=== PATIENT | male | born 1965 | race Hispanic/Latino ===

== ENCOUNTER 2021-11-01 11:12 | Emergency (ER) | payer OTHER ==
[~2021-11-01] VITALS: Ht 172.7 cm; Wt 83.9 kg
[2021-11-01 11:18] VITALS: TEMP 99.6
[2021-11-01 12:08] LABS: PLATELET COUNT 296 K/uL (142-355)
[2021-11-01 17:45] VITALS: BP 128/71
== END 2021-11-01 17:45 | disposition short-term general hospital (02) ==
LOC: ED 11:12
PROVIDERS: Emergency Medicine Emergency Medical Services
DX: I63.89 Other cerebral infarction (principal); I10 Essential (primary) hypertension; Z91.14 Patient's other noncompliance with medication regimen; F17.210 Nicotine dependence, cigarettes, uncomplicated; Z11.52 Encounter for screening for COVID-19; W18.39XA Other fall on same level, initial encounter; Y92.89 Other specified places as the place of occurrence of the external cause
CPT/HCPCS: 36415; 80053; 83735; 84484; 85027; 87635; 93005; 96374; 96375; 99284; J0360; J3490; U0003

== ENCOUNTER 2022-04-07 14:55 | Emergency (ER) | payer OTHER ==
[~2022-04-07] VITALS: Ht 172.7 cm; Wt 74.8 kg
[2022-04-07 14:58] VITALS: TEMP 99
[2022-04-07 16:52] LABS: PLATELET COUNT 233 K/uL (142-355)
[2022-04-07 16:55] LABS: POTASSIUM 3.9 mmol/L (3.6-5.2)
[2022-04-07 17:01] LABS: PARTIAL THROMBOPLASTIN TIME 25.6 SECONDS (24.5-33.6)
[2022-04-07 19:10] VITALS: BP 137/88
== END 2022-04-07 19:10 | disposition home or self-care (01) ==
LOC: ED 14:55
PROVIDERS: Emergency Medicine
DX: I16.0 Hypertensive urgency (principal); F17.210 Nicotine dependence, cigarettes, uncomplicated; M79.604 Pain in right leg
CPT/HCPCS: 36415; 80053; 81000; 84484; 85027; 85610; 85730; 87088; 93005; 96365; 96372; 96375; 99284; J0360; J1885; J3490

== ENCOUNTER 2022-06-13 12:47 | Emergency (ER) | payer OTHER ==
[~2022-06-13] VITALS: Ht 172.7 cm; Wt 77.1 kg
[2022-06-13 12:47] VITALS: TEMP 98
[2022-06-13 13:19] LABS: PLATELET COUNT 266 K/uL (142-355)
[2022-06-13 13:31] LABS: POTASSIUM 3.9 mmol/L (3.6-5.2)
[2022-06-13 15:38] VITALS: BP 100/56
== END 2022-06-13 15:38 | disposition home or self-care (01) ==
LOC: ED 12:50
PROVIDERS: Emergency Medicine Emergency Medical Services
DX: I10 Essential (primary) hypertension (principal); F17.210 Nicotine dependence, cigarettes, uncomplicated
CPT/HCPCS: 80053; 83735; 84484; 85027; 93005; 96361; 96365; 96374; 96375; 99284; J0360; J3490

== ENCOUNTER 2022-06-16 09:52 | Observation (INO) | payer OTHER ==
[~2022-06-16] VITALS: Ht 172.7 cm; Wt 74.0 kg
[2022-06-16 09:56] VITALS: BP 175/110; TEMP 99
[2022-06-16 10:57] LABS: PLATELET COUNT 196 K/uL (142-355)
[2022-06-16 11:00] VITALS: BP 185/115
[2022-06-16 11:30] VITALS: BP 186/122
[2022-06-16 12:31] VITALS: BP 178/112
[2022-06-16] MEDS ORDERED: LISI20TA11 PO (13:23)
[2022-06-16 13:43] VITALS: BP 181/118; TEMP 98.8; Ht 172.7 cm; Wt 74.0 kg
[2022-06-16 20:51] VITALS: BP 184/100; TEMP 99.8
[2022-06-17 00:21] VITALS: BP 149/96; TEMP 98.4
[2022-06-17 04:00] VITALS: BP 170/100; TEMP 98.7
[2022-06-17 04:16] LABS: PLATELET COUNT 186 K/uL (142-355)
[2022-06-17 08:00] VITALS: BP 164/98; TEMP 98.3
[2022-06-17] MEDS ORDERED: LISI20TA11 PO (10:53)
[2022-06-17] MEDS ORDERED: METO-837 PO (10:54)
[2022-06-17] MEDS ORDERED: ATOR20TA2 PO (10:55)
[2022-06-17] MEDS ORDERED: CEFD300C2 PO (11:02)
[2022-06-17 12:00] VITALS: BP 124/74; TEMP 97.9
== END 2022-06-17 13:46 | disposition home or self-care (01) ==
LOC: ED 09:52 → MED/SURG 11:20
PROVIDERS: ADMIT Family Medicine; ATTEND Internal Medicine
DX: R07.89 Other chest pain (principal); Z86.73 Personal history of transient ischemic attack (TIA), and cerebral infarction without residual deficits; R41.82 Altered mental status, unspecified; N39.0 Urinary tract infection, site not specified; I12.9 Hypertensive chronic kidney disease with stage 1 through stage 4 chronic kidney disease, or unspecified chronic kidney disease; N18.31 Chronic kidney disease, stage 3a; R26.2 Difficulty in walking, not elsewhere classified; R53.1 Weakness; Z87.891 Personal history of nicotine dependence; Z09 Encounter for follow-up examination after completed treatment for conditions other than malignant neoplasm
CPT/HCPCS: 36415; 80053; 80061; 80307; 81000; 82550; 83605; 84439; 84443; 84484; 85027; 87086; 87088; 93005; 96361; 96365; 96375; 99221; 99284; G0378; J0360; J0696; J3490